=== PATIENT | female | born 1965 ===

== ENCOUNTER 2017-09-22 14:39 | Outpatient (CLI) | payer OTHER ==
--- NOTE | 2017-09-23 10:10 | Ultrasound Report ---
BILATERAL DIGITAL DIAGNOSTIC MAMMOGRAM with CAD and BILATERAL BREAST ULTRASOUND: 09/22/17 CLINICAL: Left breast lump. The patient is rather vague and could not point to a specific lump. COMPARISON:[facility] 2016 mammogram FINDINGS: The breasts are heterogeneously dense, which may obscure small masses. The fibroglandular pattern is stable. A left upper outer focal asymmetry is unchanged compared to the prior exam.No mass, architectural distortion or suspicious calcifications . No mammographic finding at a left palpable marker at 12 o'clock. Ultrasound of the right breast (including all four quadrants and the retroareolar area) was performed and demonstrated a benign cyst at 10 o'clock 4 cm from the nipple measuring 6 x 4 x 5 mm. No solid mass or shadowing. Ultrasound of the left breast (including all four quadrants and the retroareolar area) was performed and demonstrated a benign cyst it o'clock 3 cm from the nipple measuring 6 x 3 x 5 mm. No solid mass or shadowing. IMPRESSION: Bilateral benign cysts. BI-RADS CATEGORY: 2 -- Benign RECOMMENDATION: Routine mammographic screening in one year. ACR BI-RADS MAMMOGRAPHIC CODES: 0 = Needs additional imaging evaluation; 1 = Negative; 2 = Benign; 3 = Probably benign; 4 = Suspicious; 5 = Malignant; 6 = Known biopsy-proven malignancy COMMENT: 1. Dense breast tissue, i.e., adenosis, fibrocystic changes, etc., may obscure an underlying neoplasm. 2. Approximately 10% of cancers are not detected with mammography. 3. A negative mammography report should not delay biopsy if a clinically suspicious mass is present. COMMENT: Patient follow-up letters are generated by our [employer] application.
== END 2017-09-22 14:40 | disposition home or self-care (01) ==
LOC: SPVWC 14:39
PROVIDERS: ATTEND Family Medicine
DX: N60.01 Solitary cyst of right breast (principal); N60.02 Solitary cyst of left breast
CPT/HCPCS: 77066